=== PATIENT | female | born 2000 | race Two or more races ===

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

== ENCOUNTER 2020-01-02 12:53 | Emergency (ER) | payer OTHER ==
[~2020-01-02] VITALS: Ht 157.5 cm; Wt 65.9 kg
[~2020-01-02 12:53] MED LIST: CEPH500T PO; ONDA4TAB7 PO
[2020-01-02 13:20] VITALS: BP 117/56
--- NOTE | 2020-01-02 13:36 | PHYS DOC ---
Past Medical History Past Medical History: No Pertinent History Past Surgical History: Appendectomy Smoking Status: Never Smoker Alcohol Use: None Drug Use: None General Adult EDM: Chief Complaint: SKIN PROBLEM HPI: HPI: Patient is a 19-year-old female who had a recent chest piercing that is at the superior aspect of the cleavage between her breasts. She states there is been a purulent drainage from the post. She denies any redness around the piercing. She denies any fever chills or sweats. She also states she got bit by a spider on her left tricep several days ago and there is still some redness there. [] Review of Systems: Review of Systems: Constitutional: Denies fever or chills. [] Eyes: Denies change in visual acuity. [] HENT: Denies nasal congestion or sore throat. [] Respiratory: Denies cough or shortness of breath. [] Cardiovascular: Denies chest pain or edema. [] GI: Denies abdominal pain, nausea, vomiting, bloody stools or diarrhea. [] : Denies dysuria. [] Musculoskeletal: Denies back pain or joint pain. [] Integument: Per HPI] Neurologic: Denies headache, focal weakness or sensory changes. [] Endocrine: Denies polyuria or polydipsia. [] Lymphatic: Denies swollen glands. [] Psychiatric: Denies depression or anxiety. [] Heart Score: Risk Factors: Risk Factors: DM, Current or recent (<one month) smoker, HTN, HLP, family history of CAD, obesity. Risk Scores: Score 0 - 3: 2.5% MACE over next 6 weeks - Discharge Home Score 4 - 6: 20.3% MACE over next 6 weeks - Admit for Clinical Observation Score 7 - 10: 72.7% MACE over next 6 weeks - Early Invasive Strategies Allergies: Allergies: Allergies Coded Allergies Type Severity Reaction Last Updated Verified sulfamethoxazole Allergy Intermediate Hives 03/12/15 No trimethoprim Allergy Intermediate Hives 03/12/15 No Physical Exam: PE: Constitutional: Well developed, well nourished, no acute distress, non-toxic appearance. [] HENT: Normocephalic, atraumatic, bilateral external ears normal, oropharynx moist, no oral exudates, nose normal. [] Eyes: PERRLA, EOMI, conjunctiva normal, no discharge. [] Neck: Normal range of motion, no tenderness, supple, no stridor. [] Cardiovascular:Heart rate regular rhythm, no murmur [] Lungs & Thorax: Bilateral breath sounds clear to auscultation [] Abdomen: Bowel sounds normal, soft, no tenderness, no masses, no pulsatile masses. [] Skin: There is. [] Back: No tenderness, no CVA tenderness. [] Extremities: No tenderness, no cyanosis, no clubbing, ROM intact, no edema. [] Neurologic: Alert and oriented X 3, normal motor function, normal sensory function, no focal deficits noted. [] Psychologic: Anxious l. [] EKG: EKG: [] Radiology/Procedures: Radiology/Procedures: [] Course & Med Decision Making: Course & Med Decision Making Pertinent Labs and Imaging studies reviewed. (See chart for details) [ED course: Evaluation reveals a 19-year-old female with a new chest piercing. I recommended that she take the piercing out for good and it would heal up fine. She was unsure whether or not she would do this she would think on it and and make a decision while she is at home.] Dragon Disclaimer: Dragon Disclaimer: This electronic medical record was generated, in whole or in part, using a voice recognition dictation system. Departure Departure Impression: Primary Impression: Infected piercing of trunk Disposition: 01 HOME, SELF-CARE Condition: STABLE Referrals: UNKNOWN PCP NAME (PCP) Patient Instructions: Piercing Infection Additional Instructions: Return to the emergency department with any new or concerning symptoms. I recommend that she remove the piercing immediately. If you remove the piercing he will not need any additional treatment. Just keep the area clean and dry. Justicifation of Admission Dx: Justifications for Admission: Justification of Admission Dx: No MARY MAHMOOD DO Jan 02, 2020 13:36
== END 2020-01-02 13:44 | disposition home or self-care (01) ==
LOC: ER 12:53
DX: L08.89 Other specified local infections of the skin and subcutaneous tissue (principal); Z88.1 Allergy status to other antibiotic agents; Z88.2 Allergy status to sulfonamides
CPT/HCPCS: 99281

== ENCOUNTER 2020-02-29 09:59 | Emergency (ER) | payer OTHER ==
[~2020-02-29] VITALS: Ht 157.5 cm; Wt 86.0 kg
[2020-02-29 10:37] VITALS: BP 111/56
[2020-02-29 11:28] LABS: BASO # 0.1 x10^3/uL (0.0-0.2); BASO % 1 % (0-3); EOS % 1 % (0-3); HEMATOCRIT 40.5 % (36.0-47.0); HEMOGLOBIN 13.9 g/dL (12.0-15.5); LYMPH # 1.9 x10^3/uL (1.0-4.8); LYMPH % 24 % (24-48); MEAN CORPUSCULAR HEMOGLOBIN 34 pg (25-35); MEAN CORPUSCULAR HGB CONC 34 g/dL (31-37); MEAN CORPUSCULAR VOLUME 100 fL (79-100); MONO # 0.6 x10^3/uL (0.0-1.1); MONO % 8 % (0-9); NEUT # 5.3 x10^3/uL (1.8-7.7); NEUT % 67 % (31-73); PLATELET COUNT 214 x10^3/uL (140-400); RED BLOOD COUNT 4.06 x10^6/uL (3.50-5.40); WHITE BLOOD COUNT 7.9 x10^3/uL (4.0-11.0)
[2020-02-29 11:39] LABS: PROTHROMBIN TIME PATIENT 13.5 SEC (11.7-14.0)
[2020-02-29 11:44] LABS: CALCIUM 9.1 mg/dL (8.5-10.1); CREATININE 0.7 mg/dL (0.6-1.0); GFR 107.8; POTASSIUM 4.1 mmol/L (3.5-5.1)
[2020-02-29 11:51] LABS: ALBUMIN 3.8 g/dL (3.4-5.0); ALBUMIN/GLOBULIN RATIO 1.1 (1.0-1.7); TOTAL BILIRUBIN 1.1 mg/dL (0.2-1.0); TOTAL PROTEIN 7.2 g/dL (6.4-8.2)
--- NOTE | 2020-02-29 11:51 | RAD ---
EXAMINATION: OB ultrasound less than 14 weeks 02/29/2020 10:37 AM INDICATION: Abdominal and pelvic pain in . LMP 01/16/2020 TECHNIQUE: First trimester OB ultrasound via transabdominal and transvaginal approach. COMPARISON: None. FINDINGS: The uterus measures 7.4 x 5.3 x 4.2 cm. There is a single living intrauterine with crown-rump length of 0.58 cm, consistent with gestational age 6 weeks 3 days. heart rate is 110 bpm. A yolk sac is visualized. The right ovary measures 3.4 x 2.4 x 2.0 cm. Left ovary measures 2.6 x 1.9 x 1.5 cm. Normal blood flow to both ovaries. No adnexal mass or free fluid. IMPRESSION: Single living intrauterine with gestational age 6 weeks 3 days by ultrasound. Electronically signed by: Minerva Ash MD (02/29/2020 11:48 AM) [id number]
--- NOTE | 2020-02-29 12:05 | PHYS DOC ---
Past Medical History Past Medical History: No Pertinent History Past Surgical History: Appendectomy Smoking Status: Never Smoker Alcohol Use: None Drug Use: None General Adult EDM: Chief Complaint: ABDOMINAL PAIN HPI: HPI: 19 yo F who denies any past medical history, presents the ED with compl aints of gradual onset headache, lower suprapubic abdominal pain and nausea for the past week. Patient states she tested negative for COVID 3 weeks ago. Takes no routine medications. Her last menstrual period was January 15. 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 Reports one lifetime sexual partner, uses no protection. Review of Systems: Review of Systems: Constitutional: Denies fever or chills. [] Eyes: Denies change in visual acuity. [] HENT: Denies nasal congestion or sore throat. [] Respiratory: Denies cough or shortness of breath. [] Cardiovascular: Denies chest pain or edema. [] GI: Denies nausea, vomiting, bloody stools or diarrhea. [] : Denies dysuria, hematuria Musculoskeletal: Denies back pain or joint pain. [] Integument: Denies rash. [] Neurologic: Denies headache, focal weakness or sensory changes. [] Endocrine: Denies polyuria or polydipsia. [] Lymphatic: Denies swollen glands. [] Psychiatric: Denies depression or anxiety. [] : Denies vaginal bleeding, abnormal vaginal discharge itching or odor Heart Score: Risk Factors: Risk Factors: DM, Current or recent (<one month) smoker, HTN, HLP, family history of CAD, obesity. Risk Scores: Score 0 - 3: 2.5% MACE over next 6 weeks - Discharge Home Score 4 - 6: 20.3% MACE over next 6 weeks - Admit for Clinical Observation Score 7 - 10: 72.7% MACE over next 6 weeks - Early Invasive Strategies Allergies: Allergies: Allergies Coded Allergies Type Severity Reaction Last Updated Verified sulfamethoxazole Allergy Intermediate Hives 03/12/15 No trimethoprim Allergy Intermediate Hives 03/12/15 No Physical Exam: PE: Constitutional: Well developed, well nourished, no acute distress, non-toxic appearance. [] HENT: Normocephalic, atraumatic, Eyes: EOMI, conjunctiva normal, no discharge. [] Neck: Normal range of motion, supple, Cardiovascular:Heart rate regular rhythm, no murmur [] Lungs & Thorax: Bilateral breath sounds clear to auscultation [] Abdomen: Bowel sounds normal, soft, no tenderness, no masses, no pulsatile masses. [] Skin: Warm, dry, no erythema, no rash. [] Back: No tenderness, no CVA tenderness. [] Extremities: No tenderness, no cyanosis, no clubbing, ROM intact, no edema. [] Neurologic: Alert and oriented X 3, normal motor function, normal sensory function, no focal deficits noted. [] Psychologic: Affect normal, judgement normal, mood normal. [] Current Patient Data: Labs: Laboratory Tests Test 02/29/20 10:32 02/29/20 11:15 POC Urine HCG, Qualitative Hcg positive (Negative) White Blood Count 7.9 x10^3/uL (4.0-11.0) Red Blood Count 4.06 x10^6/uL (3.50-5.40) Hemoglobin 13.9 g/dL (12.0-15.5) Hematocrit 40.5 % (36.0-47.0) Mean Corpuscular Volume 100 fL (79-100) Mean Corpuscular Hemoglobin 34 pg (25-35) Mean Corpuscular Hemoglobin Concent 34 g/dL (31-37) Red Cell Distribution Width 13.0 % (11.5-14.5) Platelet Count 214 x10^3/uL (140-400) Neutrophils (%) (Auto) 67 % (31-73) Lymphocytes (%) (Auto) 24 % (24-48) Monocytes (%) (Auto) 8 % (0-9) Eosinophils (%) (Auto) 1 % (0-3) Basophils (%) (Auto) 1 % (0-3) Neutrophils # (Auto) 5.3 x10^3/uL (1.8-7.7) Lymphocytes # (Auto) 1.9 x10^3/uL (1.0-4.8) Monocytes # (Auto) 0.6 x10^3/uL (0.0-1.1) Eosinophils # (Auto) 0.0 x10^3/uL (0.0-0.7) Basophils # (Auto) 0.1 x10^3/uL (0.0-0.2) Prothrombin Time 13.5 SEC (11.7-14.0) Prothrombin Time INR 1.1 (0.8-1.1) Activated Partial Thromboplast Time 29 SEC (24-38) Sodium Level 138 mmol/L (136-145) Potassium Level 4.1 mmol/L (3.5-5.1) Chloride Level 103 mmol/L (98-107) Carbon Dioxide Level 24 mmol/L (21-32) Anion Gap 11 (6-14) Blood Urea Nitrogen 6 mg/dL (7-20) L Creatinine 0.7 mg/dL (0.6-1.0) Estimated GFR (Cockcroft-Gault) 107.8 BUN/Creatinine Ratio 9 (6-20) Glucose Level 86 mg/dL (70-99) Calcium Level 9.1 mg/dL (8.5-10.1) Total Bilirubin 1.1 mg/dL (0.2-1.0) H Aspartate Amino Transferase (AST) 12 U/L (15-37) L Alanine Aminotransferase (ALT) 23 U/L (14-59) Alkaline Phosphatase 56 U/L (46-116) Total Protein 7.2 g/dL (6.4-8.2) Albumin 3.8 g/dL (3.4-5.0) Albumin/Globulin Ratio 1.1 (1.0-1.7) Laboratory Tests 02/29/20 11:15 Laboratory Tests 02/29/20 11:15 Vital Signs: Vital Signs Date Time Temp Pulse Resp B/P (MAP) Pulse Ox O2 Delivery O2 Flow Rate FiO2 02/29/20 10:37 98.1 67 18 111/56 (74) 99 Room Air 98.1 EKG: EKG: [] Radiology/Procedures: Radiology/Procedures: IMAGING REPORT Signed PATIENT: TIFFANY WONG AACCOUNT: [id number] : 2000 LOCATION: ER AGE: 19 SEX: F EXAM STATUS: REG ER ORD. PHYSICIAN: CRISTA BOWDEN DO REASON: abd pain in ; Pelvic Pain in PROCEDURE: OB <14 WKS W/TV EXAMINATION: OB ultrasound less than 14 weeks 02/29/2020 10:37 AM INDICATION: Abdominal and pelvic pain in . LMP 01/16/2020 TECHNIQUE: First trimester OB ultrasound via transabdominal and transvaginal approach. COMPARISON: None. FINDINGS: The uterus measures 7.4 x 5.3 x 4.2 cm. There is a single living intrauterine with crown-rump length of 0.58 cm, consistent with gestational age 6 weeks 3 days. heart rate is 110 bpm. A yolk sac is visualized. The right ovary measures 3.4 x 2.4 x 2.0 cm. Left ovary measures 2.6 x 1.9 x 1.5 cm. Normal blood flow to both ovaries. No adnexal mass or free fluid. IMPRESSION: Single living intrauterine with gestational age 6 weeks 3 days by ultrasound. Electronically signed by: Minerva Ash MD (02/29/2020 11:48 AM) [id number] DICTATED and SIGNED BY: MINERVA ASH MD DATE: 02/29/20 1148 Course & Med Decision Making: Course & Med Decision Making Pertinent Labs and Imaging studies reviewed. (See chart for details) Lower abdominal pain in the setting of intrauterine with heart rate of 110 (appropriate for gestational age). Patient has no active vaginal bleeding, is well-appearing and is in no significant distress. Headache is mild with gradual onset, improved in ed. Strict ED return precautions were given for severe pain, back pain or vaginal bleeding. Encouraged urgent outpatient follow-up with PMD and [employer]. Life-threatening processes were considered but are low suspicion at this time, given history and physical exam. Pt was educated on all prescription medications and adverse effects. All patient's questions were answered and pt was stable at time of discharge. Differential includes aortic dissection, aortic aneurysm, acute coronary syndrome, surgical abdomen (appendicitis, cholecystitis, ischemic bowel, strangulated hernia, etc), bowel obstruction or volvulus, bladder outlet obstruction, gastrointestinal bleeding, inflammatory bowel disease, peptic ulcer disease, sepsis, diverticular disease, ureterolithiasis, nephrolithiasis, ovarian torsion, ectopic , vaginal hemorrhage of infection I spoken with the patient and her caregivers. I explained the patient's condition, diagnoses and treatment plan based on the information available to me at this time. I have answered the patient and her caregiver's questions and addressed any concerns. The patient and her caregivers have a good understanding of patient's diagnosis, condition and treatment plan as can be expected at this point. Vital signs have been stable. Patient's condition is stable and appropriate for discharge from the emergency department. Patient will pursue further outpatient evaluation with primary care physician or other designated or consulting physician as outlined in the discharge instructions. The patient and/or caregivers are agreeable to this plan of care and follow-up instructions have been explained in detail. The patient and/or caregivers have received these instructions in written form and have expressed an understanding of the discharge instructions. The patient and/or caregivers are aware that any significant change of condition or worsening of symptoms should prompt immediate return to this or the closest emergency department or call to 911. [employer] Disclaimer: [employer] Disclaimer: This electronic medical record was generated, in whole or in part, using a voice recognition dictation system. Departure Departure Impression: Primary Impression: Abdominal pain in Additional Impressions: Headache Nausea & vomiting Disposition: 01 HOME, SELF-CARE Condition: STABLE Referrals: NO PCP (PCP) Patient Instructions: Abdominal Pain During , General Headache Without Cause, Nausea and Vomiting Additional Instructions: Vic Levy MD Obstetrics and Gynecology [facility] [employer] Address: [address] [place] [address] Scripts Doxylamine Succinate/Vit B6 (Bonjesta ER 20-20 mg Tablet) 1 Each Tab.ir.dr 1 TAB PO BID for 10 Days, #20 TAB 0 Refills Prov: CRISTA BOWDEN DO 02/29/20 Justicifation of Admission Dx: Justifications for Admission: Justification of Admission Dx: N/A CRISTA BOWDEN DO Feb 29, 2020 12:05
[2020-02-29 12:22] LABS: BILIRUBIN,URINE NEGATIVE (NEG); CLARITY,URINE CLOUDY; COLOR,URINE YELLOW; NITRITE,URINE NEGATIVE (NEG); PROTEIN,URINE NEGATIVE (NEG-TRACE)
[2020-02-29 12:39] LABS: SQUAMOUS EPITHELIAL CELL,UR MOD /LPF
[2020-02-29 12:40] LABS: BACTERIA,URINE 0 /HPF (0-FEW); RBC,URINE 0 /HPF (0-2)
[2020-02-29] MEDS ORDERED: DOXY1TAB6 PO (13:26)
== END 2020-02-29 13:59 | disposition home or self-care (01) ==
LOC: ER 09:59
DX: O26.891 Other specified pregnancy related conditions, first trimester (principal); R51 Headache; R11.2 Nausea with vomiting, unspecified; Z90.89 Acquired absence of other organs; Z3A.01 Less than 8 weeks gestation of pregnancy
CPT/HCPCS: 36415; 76801; 76817; 80053; 81001; 81025; 84702; 85025; 85610; 85730; 86900; 86901; 87086; 99284

== ENCOUNTER 2020-03-21 08:56 | Emergency (ER) | payer OTHER ==
[~2020-03-21] VITALS: Ht 154.9 cm; Wt 89.0 kg
[~2020-03-21 08:56] MED LIST changes: +DOXY1TAB6 PO
[2020-03-21] MEDS ORDERED: diphenhydrAMINE 50 MG/ML VIAL IVP ONE (09:45)
[2020-03-21] MEDS ORDERED: IV NORMAL SALINE 1000ML BAG 1,000 ML IV ONE (09:45)
[2020-03-21] MEDS ORDERED: METOCLOPRAMIDE HCL 10 MG/2 ML VIAL. IVP ONE (09:45)
--- NOTE | 2020-03-21 09:47 | ED.ADGEN ---
Past Medical History Past Medical History: No Pertinent History Past Surgical History: Appendectomy Smoking Status: Never Smoker Alcohol Use: None Drug Use: None Adult General Chief Complaint Chief Complaint: MULTIPLE COMPLAINTS HPI HPI Patient is a 19 year old G1 at 9 weeks gestational age coming in with a headache since 4:30 PM yesterday. Patient states the headache came on gradually. She also over the past 1 to 2 weeks has been having increasing episodes of emesis, her SALES LEDGER ADMINISTRATOR who called in a prescription for which she has not picked up yet. Patient has had some loose stools. His emesis is nonbloody nonbilious. Has muscle aches since the vomiting. Denies any neck rigidity or fever. No vision changes. No vaginal bleeding or discharge. Review of Systems Review of Systems Constitutional: Denies fever or chills. [] Eyes: Denies change in visual acuity. [] HENT: Denies nasal congestion or sore throat. [] Respiratory: Denies cough or shortness of breath. [] Cardiovascular: Denies chest pain or edema. [] GI: Diffuse abdominal pain, nausea, vomiting. : Denies dysuria. [] Musculoskeletal: Denies back pain or joint pain. [] Integument: Denies rash. [] Neurologic: Denies headache, focal weakness or sensory changes. [] Endocrine: Denies polyuria or polydipsia. [] Lymphatic: Denies swollen glands. [] Psychiatric: Denies depression or anxiety. [] Current Medications Current Medications Current Medications Medications (Trade) Dose Ordered Sig/Garrett Start Time Stop Time Status Last Admin Dose Admin Diphenhydramine HCl (Benadryl) 25 mg 1X ONCE 03/21/20 09:45 03/21/20 09:48 DC 03/21/20 10:10 25 MG Metoclopramide HCl (Reglan Vial) 10 mg 1X ONCE 03/21/20 09:45 03/21/20 09:48 DC 03/21/20 10:10 10 MG Sodium Chloride 1,000 ml @ 1,000 mls/hr 1X ONCE 03/21/20 09:45 03/21/20 10:44 DC 03/21/20 10:10 1,000 MLS/HR Allergies Allergies Allergies Coded Allergies Type Severity Reaction Last Updated Verified sulfamethoxazole Allergy Intermediate Hives 03/12/15 No trimethoprim Allergy Intermediate Hives 9/28/15 No Physical Exam Physical Exam Constitutional: Well developed, well nourished, no acute distress, non-toxic appearance. [] HENT: Normocephalic, atraumatic, bilateral external ears normal, oropharynx moist, no oral exudates, nose normal. [] Eyes: PERRLA, EOMI, conjunctiva normal, no discharge. [] Neck: Normal range of motion, no tenderness, supple, no stridor. [] Cardiovascular:Heart rate regular rhythm, no murmur [] Lungs & Thorax: Bilateral breath sounds clear to auscultation [] Abdomen: Bowel sounds normal, soft, no tenderness, no masses, no pulsatile masses. [] Skin: Warm, dry, no erythema, no rash. [] Back: No tenderness, no CVA tenderness. [] Extremities: No tenderness, no cyanosis, no clubbing, ROM intact, no edema. [] Neurologic: Alert and oriented X 3, normal motor function, normal sensory function, no focal deficits noted. [] Psychologic: Affect normal, judgement normal, mood normal. [] Current Patient Data Vital Signs Vital Signs Date Time Temp Pulse Resp B/P (MAP) Pulse Ox O2 Delivery O2 Flow Rate FiO2 03/21/20 10:21 85 16 93/54 (67) 100 Room Air 03/21/20 09:00 98.0 98.0 Lab Values Laboratory Tests Test 03/21/20 09:00 03/21/20 09:21 03/21/20 09:50 Urine Collection Type Unknown Urine Color Yellow Urine Clarity Clear Urine pH 8.5 (<5.0-8.0) Urine Specific [place] 1.015 (1.000-1.030) Urine Protein Negative mg/dL (NEG-TRACE) Urine Glucose (UA) Negative mg/dL (NEG) Urine Ketones (Stick) Negative mg/dL (NEG) Urine Blood Negative (NEG) Urine Nitrite Negative (NEG) Urine Bilirubin Negative (NEG) Urine Urobilinogen Dipstick 1.0 mg/dL (0.2 mg/dL) Urine Leukocyte Esterase Trace (NEG) Urine RBC 0 /HPF (0-2) Urine WBC 1-4 /HPF (0-4) Urine Squamous Epithelial Cells Many /LPF Urine Bacteria Few /HPF (0-FEW) POC Urine HCG, Qualitative Hcg positive (Negative) White Blood Count 9.4 x10^3/uL (4.0-11.0) Red Blood Count 3.95 x10^6/uL (3.50-5.40) Hemoglobin 13.7 g/dL (12.0-15.5) Hematocrit 39.0 % (36.0-47.0) Mean Corpuscular Volume 99 fL (79-100) Mean Corpuscular Hemoglobin 35 pg (25-35) Mean Corpuscular Hemoglobin Concent 35 g/dL (31-37) Red Cell Distribution Width 13.1 % (11.5-14.5) Platelet Count 224 x10^3/uL (140-400) Neutrophils (%) (Auto) 77 % (31-73) H Lymphocytes (%) (Auto) 14 % (24-48) L Monocytes (%) (Auto) 8 % (0-9) Eosinophils (%) (Auto) 1 % (0-3) Basophils (%) (Auto) 0 % (0-3) Neutrophils # (Auto) 7.3 x10^3/uL (1.8-7.7) Lymphocytes # (Auto) 1.4 x10^3/uL (1.0-4.8) Monocytes # (Auto) 0.7 x10^3/uL (0.0-1.1) Eosinophils # (Auto) 0.1 x10^3/uL (0.0-0.7) Basophils # (Auto) 0.0 x10^3/uL (0.0-0.2) Sodium Level 136 mmol/L (136-145) Potassium Level 3.6 mmol/L (3.5-5.1) Chloride Level 102 mmol/L (98-107) Carbon Dioxide Level 26 mmol/L (21-32) Anion Gap 8 (6-14) Blood Urea Nitrogen 5 mg/dL (7-20) L Creatinine 0.5 mg/dL (0.6-1.0) L Estimated GFR (Cockcroft-Gault) 158.9 BUN/Creatinine Ratio 10 (6-20) Glucose Level 80 mg/dL (70-99) Calcium Level 9.2 mg/dL (8.5-10.1) Magnesium Level 2.0 mg/dL (1.8-2.4) Total Bilirubin 0.6 mg/dL (0.2-1.0) Aspartate Amino Transferase (AST) 31 U/L (15-37) Alanine Aminotransferase (ALT) 58 U/L (14-59) Alkaline Phosphatase 47 U/L (46-116) Total Protein 7.1 g/dL (6.4-8.2) Albumin 3.6 g/dL (3.4-5.0) Albumin/Globulin Ratio 1.0 (1.0-1.7) Laboratory Tests 03/21/20 09:50 Laboratory Tests 03/21/20 09:50 EKG EKG [] Radiology/Procedures Radiology/Procedures [] Course & Med Decision Making Course & Med Decision Making Pertinent Labs and Imaging studies reviewed. (See chart for details) Headache improved, labs are unremarkable. Patient plans to waste picker her prescription for nausea [] Dragon Disclaimer Dragon Disclaimer This electronic medical record was generated, in whole or in part, using a voice recognition dictation system. Departure Departure Impression: Primary Impression: Headache Disposition: HOME, SELF-CARE Condition: STABLE Referrals: NO PCP (PCP) TASH SHINE Jr, MD, ASHLEY MD Mar 21, 2020 09:47
[2020-03-21 09:52] LABS: BILIRUBIN,URINE NEGATIVE (NEG); CLARITY,URINE CLEAR; COLOR,URINE YELLOW; NITRITE,URINE NEGATIVE (NEG); PH,URINE 8.5 (<5.0-8.0); PROTEIN,URINE NEGATIVE (NEG-TRACE)
[2020-03-21 09:58] LABS: BASO % 0 % (0-3); EOS # 0.1 x10^3/uL (0.0-0.7); EOS % 1 % (0-3); HEMOGLOBIN 13.7 g/dL (12.0-15.5); LYMPH # 1.4 x10^3/uL (1.0-4.8); LYMPH % 14 % (24-48); MEAN CORPUSCULAR HEMOGLOBIN 35 pg (25-35); MEAN CORPUSCULAR HGB CONC 35 g/dL (31-37); MEAN CORPUSCULAR VOLUME 99 fL (79-100); MONO # 0.7 x10^3/uL (0.0-1.1); MONO % 8 % (0-9); NEUT # 7.3 x10^3/uL (1.8-7.7); NEUT % 77 % (31-73); PLATELET COUNT 224 x10^3/uL (140-400); RED BLOOD COUNT 3.95 x10^6/uL (3.50-5.40); RED CELL DISTRIBUTION WIDTH 13.1 % (11.5-14.5); WHITE BLOOD COUNT 9.4 x10^3/uL (4.0-11.0)
[2020-03-21 10:08] LABS: CALCIUM 9.2 mg/dL (8.5-10.1); CREATININE 0.5 mg/dL (0.6-1.0); GFR 158.9; POTASSIUM 3.6 mmol/L (3.5-5.1)
[2020-03-21 10:10] LABS: BACTERIA,URINE FEW /HPF (0-FEW); RBC,URINE 0 /HPF (0-2)
[2020-03-21 10:14] LABS: ALBUMIN 3.6 g/dL (3.4-5.0); TOTAL BILIRUBIN 0.6 mg/dL (0.2-1.0); TOTAL PROTEIN 7.1 g/dL (6.4-8.2)
[2020-03-21 10:21] VITALS: BP 93/54
== END 2020-03-21 10:40 | disposition home or self-care (01) ==
LOC: ER 08:56
DX: O26.891 Other specified pregnancy related conditions, first trimester (principal); R51.9 Headache, unspecified; O21.9 Vomiting of pregnancy, unspecified; Z3A.09 9 weeks gestation of pregnancy; Z90.89 Acquired absence of other organs; Z88.1 Allergy status to other antibiotic agents; Z88.2 Allergy status to sulfonamides
CPT/HCPCS: 36415; 80053; 81001; 81025; 83735; 85025; 87086; 96374; 96375; 99284; J1200; J2765; J7030

== ENCOUNTER → 2020-05-09 | Outpatient (CLI) | payer OTHER ==
[2020-05-09 19:29] LABS: BASO % 1 % (0-3); EOS % 0 % (0-3); HEMATOCRIT 36.3 % (36.0-47.0); HEMOGLOBIN 12.8 g/dL (12.0-15.5); LYMPH # 2.2 x10^3/uL (1.0-4.8); LYMPH % 23 % (24-48); MEAN CORPUSCULAR HEMOGLOBIN 35 pg (25-35); MEAN CORPUSCULAR HGB CONC 35 g/dL (31-37); MEAN CORPUSCULAR VOLUME 99 fL (79-100); MONO # 0.5 x10^3/uL (0.0-1.1); MONO % 5 % (0-9); NEUT % 71 % (31-73); PLATELET COUNT 205 x10^3/uL (140-400); RED BLOOD COUNT 3.65 x10^6/uL (3.50-5.40); RED CELL DISTRIBUTION WIDTH 13.2 % (11.5-14.5); WHITE BLOOD COUNT 9.9 x10^3/uL (4.0-11.0)
[2020-05-10 16:08] LABS: FREE T4 0.85 ng/dL (0.76-1.46); THYROID STIM HORMONE (TSH) 2.33 uIU/mL (0.358-3.74)
== END ==
LOC: LAB 16:28
PROVIDERS: ATTEND Obstetrics & Gynecology
DX: Z34.92 Encounter for supervision of normal pregnancy, unspecified, second trimester (principal); Z3A.15 15 weeks gestation of pregnancy
CPT/HCPCS: 81220; 81511; 84439; 84443; 85025; 85660; 86592; 86695; 86696; 86703; 86762; 86803; 86850; 86900; 86901; 87340

== ENCOUNTER → 2020-06-05 | Outpatient (CLI) | payer OTHER ==
--- NOTE | 2020-06-06 01:43 | RAD ---
OB ultrasound dated 06/05/2020: No comparison available. Clinical Indication: survey. Findings: There is a single intrauterine gestation in cephalic presentation. The placenta is posterior in locat ion without evidence of placental previa. The amount of amniotic fluid appears appropriate. ROLANDO equal s 10.6 cm. Several length estimated at 3.4 cm. Biometrical data is as follows: BPD = 4.6 cm for 20 weeks 0 days. HC = 17.1 cm for 19 weeks 5 days. AC = 15.7 cmfor 20 weeks to days. FL = 3.3 cm for 20 weeks 1 days. Overall, the estimated sonographic gestational age is 20 weeks 0 days for an estimated date of delive ry of 10/23/2020. This is within one day off the estimated date of delivery provided by the last menst rual period. Estimated weight is 339 g. A 4 chamber heart is identified with positive cardiac activity. The estimated heart rate is 157 beats per minute. Bilateral upper and lower extremities are identified. There is a three-vessel cord with cord insertion visualized. stomach and urinary bladder are identified. Both kidneys are s een. The spine and brain are unremarkable. No gross abnormalities are identified. profil e is not well seen due to position of fetus. Impression: Single viable intrauterine gestation with estimated sonographic gestational age of 20 weeks 0 days. N o apparent abnormality. Electronically signed by: Vic Townsend MD (06/06/2020 1:40 AM) [facility]
== END ==
LOC: US 15:33
PROVIDERS: ATTEND Obstetrics & Gynecology
DX: Z34.92 Encounter for supervision of normal pregnancy, unspecified, second trimester (principal); Z3A.20 20 weeks gestation of pregnancy
CPT/HCPCS: 76805

== ENCOUNTER 2020-07-30 12:23 | Emergency (ER) | payer OTHER ==
[~2020-07-30] VITALS: Ht 154.9 cm; Wt 96.0 kg
[2020-07-30 12:53] VITALS: BP 142/70
[2020-07-30] MEDS ORDERED: CEPH500T PO (13:45)
--- NOTE | 2020-07-30 13:46 | PHYS DOC ---
Past Medical History Past Medical History: No Pertinent History (MABEL YANG APRN) Past Surgical History: Appendectomy (MABEL YANG APRN) Smoking Status: Never Smoker Alcohol Use: None Drug Use: None (MABEL YANG APRN) General Adult EDM: Chief Complaint: ABSCESS HPI: HPI: Patient is a 19 year old female 1 para 0 currently 27 weeks presenting to the ED today complaining of pus coming out of her chest piercing. She states she has had the piercing since 2019. Denies any fever. She states she follows up with an SURGICAL TECH for her care. (MABEL YANG APRN) Review of Systems: Review of Systems: Constitutional: Denies fever or chills. [] GI: Reports . Denies abdominal pain, nausea, vomiting, bloody stools or diarrhea. [] : Denies dysuria. [] Musculoskeletal: Denies back pain or joint pain. [] Integument: Reports infected chest piercing Neurologic: Denies headache, focal weakness or sensory changes. [] Psychiatric: Denies depression or anxiety. [] (MABEL YANG APRN) Heart Score: Risk Factors: Risk Factors: DM, Current or recent (<one month) smoker, HTN, HLP, family history of CAD, obesity. Risk Scores: Score 0 - 3: 2.5% MACE over next 6 weeks - Discharge Home Score 4 - 6: 20.3% MACE over next 6 weeks - Admit for Clinical Observation Score 7 - 10: 72.7% MACE over next 6 weeks - Early Invasive Strategies (MABEL YANG APRN) Allergies: Allergies: Allergies Coded Allergies Type Severity Reaction Last Updated Verified sulfamethoxazole Allergy Intermediate Hives 03/12/15 No trimethoprim Allergy Intermediate Hives 03/12/15 No (MABEL YANG APRN) Physical Exam: PE: Constitutional: Well developed, well nourished, no acute distress, non-toxic appearance. [] Abdomen: Gravid abdomen. Bowel sounds normal, soft, no tenderness, no masses, no pulsatile masses. [] Skin: Warm, dry, in between the breast there is a piercing with drainage around the chest piercing jewelry and redness no drainable abscess noted. Back: No tenderness, no CVA tenderness. [] Extremities: No tenderness, no cyanosis, no clubbing, ROM intact, no edema. [] Neurologic: Alert and oriented X 3, normal motor function, normal sensory function, no focal deficits noted. [] Psychologic: Affect normal, judgement normal, mood normal. [] (MABEL YANG APRN) Current Patient Data: Vital Signs: Vital Signs Date Time Temp Pulse Resp B/P (MAP) Pulse Ox O2 Delivery O2 Flow Rate FiO2 07/30/20 12:53 97.3 72 16 142/70 (94) 100 Room Air 97.3 (MABEL YANG APRN) EKG: EKG: [] (MABEL YANG APRN) Radiology/Procedures: Radiology/Procedures: [] (MABEL YANG APRN) Course & Med Decision Making: Course & Med Decision Making Pertinent Labs and Imaging studies reviewed. (See chart for details) This is a 19-year-old female patient presenting to the ED today complaining of infected piercing in between her breast. Instructed patient to remove the jewelry in that region. She was put on cephalexin. Provided instructions the area clean and dry. Warm compresses recommended by care doctor and SURGICAL TECH . Tetanus up to date (MABEL YANG APRN) Dragon Disclaimer: Dragon Disclaimer: This electronic medical record was generated, in whole or in part, using a voice recognition dictation system. (MABEL YANG APRN) Departure Departure Impression: Primary Impression: Abscess or cellulitis of chest wall Disposition: 01 DC HOME SELF CARE/HOMELESS Condition: STABLE Referrals: NO PCP (PCP) ROMY SELF MD follow up in 1 week Patient Instructions: Abscess, [id number] Additional Instructions: You have an infected piercing in between your breast. Remove the jewelry in that region. Keep the area clean and dry. Take the prescribed antibiotics until completed and follow-up with your own SURGICAL TECH Scripts Cephalexin (CEPHALEXIN) 500 Mg Tablet 1 TAB PO TID, #30 TAB Prov: MABEL YANG APRN 07/30/20 Attending Signature Attending Signature I have reviewed the PA/CARTOGRAPHIC AIDE's note and plan of care. I was available for consultation as needed during the patient's visit in the emergency department. I agree with the clinical impression, plan, and disposition. (ROMY CHAMPAGNE DO) MABEL YANG APRN Jul 30, 2020 13:46 ROMY CHAMPAGNE DO Jul 30, 2020 17:13
== END 2020-07-30 14:02 | disposition home or self-care (01) ==
LOC: ER 12:23
DX: O99.712 Diseases of the skin and subcutaneous tissue complicating pregnancy, second trimester (principal); L03.313 Cellulitis of chest wall; Z3A.27 27 weeks gestation of pregnancy; Z88.1 Allergy status to other antibiotic agents; Z88.2 Allergy status to sulfonamides
CPT/HCPCS: 99283

== ENCOUNTER → 2020-08-09 | Outpatient (CLI) | payer OTHER ==
[2020-07-30 12:53] VITALS: BP 142/70
[~2020-08-09] MED LIST changes: +DOCU-109 PO; +IBUP-1060 PO; +METR500T PO
[2020-08-09 11:58] LABS: HEMATOCRIT 37.4 % (36.0-47.0); HEMOGLOBIN 13.1 g/dL (12.0-15.5); RED BLOOD COUNT 3.77 x10^6/uL (3.50-5.40); RED CELL DISTRIBUTION WIDTH 12.4 % (11.5-14.5); WHITE BLOOD COUNT 8.6 x10^3/uL (4.0-11.0)
== END ==
LOC: LAB 10:35
PROVIDERS: ATTEND Obstetrics & Gynecology
DX: Z34.93 Encounter for supervision of normal pregnancy, unspecified, third trimester (principal); Z3A.29 29 weeks gestation of pregnancy
CPT/HCPCS: 36415; 82950; 85027

== ENCOUNTER 2020-09-04 14:24 | Emergency (ER) | payer OTHER ==
[~2020-09-04] VITALS: Ht 167.6 cm; Wt 90.9 kg
[~2020-09-04 14:24] MED LIST changes: -DOCU-109 PO; -IBUP-1060 PO; -METR500T PO
[2020-09-04 14:36] VITALS: BP 148/87
[2020-09-04 15:13] LABS: BILIRUBIN,URINE NEGATIVE (NEG); CLARITY,URINE CLEAR; COLOR,URINE YELLOW; NITRITE,URINE NEGATIVE (NEG); PROTEIN,URINE NEGATIVE (NEG-TRACE); UROBILINOGEN,URINE 0.2 mg/dL (0.2 mg/dL)
[2020-09-04 15:22] LABS: AMORPHOUS SEDIMENT,UR PRESENT /HPF; BACTERIA,URINE MODERATE /HPF (0-FEW)
[2020-09-04 15:23] LABS: SPERM,URINE PRESENT /HPF
[2020-09-04 15:24] LABS: RBC,URINE 0 /HPF (0-2)
--- NOTE | 2020-09-04 16:00 | ED.ADGEN ---
Past Medical History Past Medical History: No Pertinent History Past Surgical History: Appendectomy Smoking Status: Never Smoker Alcohol Use: None Drug Use: None General Adult EDM: Chief Complaint: VAGINAL PROBLEM HPI: HPI: Patient is a 20 year old female, accompanied by her significant other, who presents to the emergency department with complaints of abnormal vaginal discharge. Patient states she is currently 33 weeks , her SYRUP MIXER HELPER is Dr. Self. Patient reports she was evaluated by Dr. Self last week for the same symptoms and was told that she did not have any sexually transmitted infections. She denies any increased urinary frequency, hematuria, dysuria, incontinence, irregular vaginal odor, or vaginal bleeding. She reports that her vaginal area is tender when she wipes after urination. She denies any vaginal itching. She denies any back pain, abdominal pain, shortness of breath, fever, cough, body aches, nausea, vomiting, or diarrhea at this time. She currently denies any pain. Review of Systems: Review of Systems: Complete ROS is negative unless otherwise noted in HPI. Allergies: Allergies: Allergies Coded Allergies Type Severity Reaction Last Updated Verified sulfamethoxazole Allergy Intermediate Hives 03/12/15 No trimethoprim Allergy Intermediate Hives 03/12/15 No Physical Exam: PE: See Above Constitutional: Well developed, well nourished, no acute distress, non-toxic appearance. HENT: Normocephalic, atraumatic, bilateral external ears normal, nose normal. Eyes: PERRLA, EOMI, conjunctiva normal, no discharge. Neck: Normal range of motion, no stridor. Cardiovascular: Heart rate regular rhythm Lungs & Thorax: Respirations even and unlabored, no retractions, no respiratory distress Pelvic Exam: Rubber Extrusion Machine Operator present Isha RN Abdomen: Nontender, soft External Genitalia: Erythema of the genitalia presents with moderate amount of white discharge, negative whiff test Speculum: Deferred Bimanual: Deferred Skin: Warm, dry, no erythema, no rash. Extremities: No cyanosis, ROM intact, no edema. Neurologic: Alert and oriented X 3, no focal deficits noted. Psychologic: Affect normal, judgement normal, mood normal. Current Patient Data: Labs: Laboratory Tests Test 09/04/20 14:35 Urine Collection Type Unknown Urine Color Yellow Urine Clarity Clear Urine pH 7.0 (<5.0-8.0) Urine Specific [place] 1.010 (1.000-1.030) Urine Protein Negative mg/dL (NEG-TRACE) Urine Glucose (UA) Negative mg/dL (NEG) Urine Ketones (Stick) Negative mg/dL (NEG) Urine Blood Negative (NEG) Urine Nitrite Negative (NEG) Urine Bilirubin Negative (NEG) Urine Urobilinogen Dipstick 0.2 mg/dL (0.2 mg/dL) Urine Leukocyte Esterase Negative (NEG) Urine RBC 0 /HPF (0-2) Urine WBC 1-4 /HPF (0-4) Urine Squamous Epithelial Cells Many /LPF Urine Amorphous Sediment Present /HPF Urine Bacteria Moderate /HPF (0-FEW) Urine Sperm Present /HPF Microbiology 09/04/20 Wet Prep - Final, Complete Vital Signs: Vital Signs Date Time Temp Pulse Resp B/P (MAP) Pulse Ox O2 Delivery O2 Flow Rate FiO2 09/04/20 14:36 98.2 95 16 148/87 (107) 98 Room Air 98.2 EKG: EKG: [] Heart Score: C/O Chest Pain: No Risk Factors: Risk Factors: DM, Current or recent (<one month) smoker, HTN, HLP, family history of CAD, obesity. Risk Scores: Score 0 - 3: 2.5% MACE over next 6 weeks - Discharge Home Score 4 - 6: 20.3% MACE over next 6 weeks - Admit for Clinical Observation Score 7 - 10: 72.7% MACE over next 6 weeks - Early Invasive Strategies Radiology/Procedures: Radiology/Procedures: [] Course & Med Decision Making: Course & Med Decision Making Pertinent Labs and Imaging studies reviewed. (See chart for details) [id number] I spoke with Dr. Self, the patient's OBGYN and advised of UA and wet mount findings. Will treat pt for bacterial vaginosis and instruct her to follow up in his office as planned. Patient verbalized an understanding of home care, medications, follow-up, and return to ED instructions and was in agreement with the plan of care. [] Dragon Disclaimer: Dragon Disclaimer: This electronic medical record was generated, in whole or in part, using a voice recognition dictation system. Departure Departure Impression: Primary Impression: Bacterial vaginosis in Disposition: 01 DC HOME SELF CARE/HOMELESS Condition: STABLE Referrals: NO PCP (PCP) ROMY SELF MD Patient Instructions: Bacterial Vaginosis, [id number] Additional Instructions: Fill the prescription and take it as directed. Be sure to use lubricant when h aving intercourse. Follow-up with Dr. Self as planned, return to the ER if symptoms worsen. Scripts Metronidazole (FLAGYL) 500 Mg Tablet 1 TAB PO BID, #14 TAB 0 Refills Prov: BRYCE CARBALLO APRN 09/04/20 BRYCE CARBALLO APRN Sep 04, 2020 16:00
[2020-09-04] MEDS ORDERED: METR500T PO (16:09)
== END 2020-09-04 16:15 | disposition home or self-care (01) ==
LOC: ER 14:24
DX: O23.593 Infection of other part of genital tract in pregnancy, third trimester (principal); Z90.89 Acquired absence of other organs; Z3A.33 33 weeks gestation of pregnancy
CPT/HCPCS: 81001; 87086; 99284; Q0111

== ENCOUNTER 2020-09-24 13:36 | Observation (INO) | payer OTHER ==
[~2020-09-24 13:36] MED LIST changes: +METR500T PO
[2020-09-24] MEDS ORDERED: IV RINGERS,LACTATED 1000ML 1,000 ML IV PRN (14:15)
[2020-09-24 14:35] LABS: BILIRUBIN,URINE NEGATIVE (NEG); CLARITY,URINE CLOUDY; COLOR,URINE YELLOW; NITRITE,URINE NEGATIVE (NEG); PH,URINE 7.5 (<5.0-8.0); PROTEIN,URINE NEGATIVE (NEG-TRACE); UROBILINOGEN,URINE 0.2 mg/dL (0.2 mg/dL)
[2020-09-24 14:46] LABS: AMORPHOUS SEDIMENT,UR PRESENT /HPF; BACTERIA,URINE FEW /HPF (0-FEW)
[2020-09-24 14:48] LABS: RBC,URINE 0 /HPF (0-2)
== END 2020-09-24 15:30 | disposition home or self-care (01) ==
LOC: 3 SO LND 13:36
PROVIDERS: ADMIT Obstetrics & Gynecology; ATTEND Obstetrics & Gynecology
DX: O36.8130 Decreased fetal movements, third trimester, not applicable or unspecified (principal); Z3A.36 36 weeks gestation of pregnancy
CPT/HCPCS: 59025; 81001; G0378; G0379